=== PATIENT | female | born 1985 | race American Indian/Alaskan Native ===

== ENCOUNTER 2018-05-02 18:05 | Emergency (ER) | payer OTHER ==
[2018-05-02 19:49] VITALS: TEMP 98.8
[2018-05-02] MEDS ORDERED: cefTRIAXone (Rocephin) 250 mg Inj IM ONE (21:10)
--- NOTE | 2018-05-02 21:14 | ED PDOC ---
HPI: General Adult Time Seen by Provider: 05/02/18 20:43 Chief Complaint (Nursing): Female Genitourinary Chief Complaint (Provider): possible exposure to STD History Per: Patient History/Exam Limitations: no limitations Additional Complaint(s): 33 y/o female presents for evaluation of possible STD exposure. Patient states her partner is here with symptoms of dysuria and penile discharge. Patient requesting to be checked/treated for possible STD. Patient denies fever, nausea/vomiting, abdominal pain, pelvic pain, dysuria, hematuria, vaginal bleeding/discharge. Past Medical History Reviewed: Historical Data, Nursing Documentation, Vital Signs Vital Signs: Last Vital Signs Temp 98.8 F 05/02/18 19:47 Pulse 100 H 05/02/18 19:47 Resp 20 05/02/18 19:47 BP 152/84 H 05/02/18 19:47 Pulse Ox 100 05/02/18 19:47 - Medical History PMH: No Chronic Diseases - Surgical History Surgical History: No Surg Hx - Family History Family History: States: No Known Family Hx - Allergies Allergies/Adverse Reactions: Allergies Allergy/AdvReac Type Severity Reaction Status Date / Time No Known Allergies Allergy Verified 05/02/18 19:47 Review of Systems ROS Statement: Except As Marked, All Systems Reviewed And Found Negative Physical Exam - Reviewed Nursing Documentation Reviewed: Yes Vital Signs Reviewed: Yes - Physical Exam Appears: Positive for: Well, Non-toxic, No Acute Distress Head Exam: Positive for: ATRAUMATIC, NORMAL INSPECTION, NORMOCEPHALIC Skin: Positive for: Normal Color Cardiovascular/Chest: Positive for: Regular Rate, Rhythm Respiratory: Positive for: Normal Breath Sounds Gastrointestinal/Abdominal: Positive for: Normal Exam Extremity: Positive for: Normal ROM Neurologic/Psych: Positive for: Alert, Oriented (x3) - ECG O2 Sat by Pulse Oximetry: 100 - Progress ED Course And Treament: -upreg -udip -urinalysis -gc/chlamydia Patient requesting prophylactic STD treatment; Rocephin IM, Zithromax PO ordered Patient educated on findings, discharged with instructions to follow up PMD within 2-3 days Educated on safe sex Return precautions given Disposition - Clinical Impression Clinical Impression: Possible exposure to STD - Patient ED Disposition Is Patient to be Admitted: No Counseled Patient/Family Regarding: Studies Performed, Diagnosis, Need For Followup - Disposition Disposition: Routine/Home Disposition Time: 22:41 Condition: GOOD Instructions: Screening for Sexually Transmitted Infections
[2018-05-02] MEDS ORDERED: cefTRIAXone (Rocephin) 250 mg Inj ONE (22:14)
[2018-05-02 22:19] LABS: URINE BILIRUBIN NEGATIVE (NEGATIVE); URINE BLOOD SMALL (NEGATIVE); URINE CLARITY CLEAR (Clear); URINE COLOR YELLOW (YELLOW); URINE GLUCOSE (UA) NEG (NEGATIVE); URINE LEUKOCYTE ESTERASE NEG Leu/uL (Negative); URINE PROTEIN NEGATIVE (NEGATIVE); URINE UROBILINOGEN 0.2-1.0 mg/dL (0.2-1.0)
[2018-05-02 22:52] VITALS: BP 149/82; PULSE 89; RESP 16; O2SAT 99
== END 2018-05-02 22:51 | disposition home or self-care (01) ==
LOC: H.ER 18:05
DX: Z11.3 Encounter for screening for infections with a predominantly sexual mode of transmission (principal); Z20.2 Contact with and (suspected) exposure to infections with a predominantly sexual mode of transmission
CPT/HCPCS: 81003; 81025; 87086; 87491; 87591; 96372; 99283; J0696